=== PATIENT | male | born 1935 | race Caucasian/White ===

== ENCOUNTER 2017-04-26 08:25 | Outpatient (CLI) | payer MEDICARE, OTHER ==
[2017-04-26 08:55] LABS: Cardiac Risk 3.1 (Less than 4.5)
== END 2017-04-26 08:26 | disposition home or self-care (01) ==
LOC: BURLAB 08:25
PROVIDERS: ATTEND Internal Medicine Cardiovascular Disease
DX: E78.00 Pure hypercholesterolemia, unspecified (principal)
CPT/HCPCS: 36415; 80061; 82565